=== PATIENT | male | born 1980 | race Two or more races ===

== ENCOUNTER 2024-10-21 11:38 | Emergency (ER) | payer SELFPAY ==
[2024-10-21] VITALS (16 sets, daily range): BP systolic 137–166; BP diastolic 92–110; PULSE 69–97; RESP 14–24; TEMP 35.8–37; O2SAT 90–98; BMI 36.9
--- NOTE | 2024-10-21 | XR_ITS ---
Examinations: MRI Brain without intravenous contrast. MRA brain without intravenous contrast. MRA carotids without intravenous contrast 3-D vascular reconstructions Date and time of exam: October 21, 2024 at 1445 hours INDICATIONS: Onset dizziness weakness headaches beginning yesterday at 2:00 PM Technique: Multiple axial and sagittal images of the brain have been obtained MRA brain carotid images without contrast obtained, including 3-D postprocessing, vascular maximum intensity projection images Findings: Sell[place] is not enlarged. The optic chiasm and infundibular stalk are not remarkable. Prepontine and interpeduncular cisterns are not enlarged. No localized enlargement of the medulla or hiram. Fourth ventricle and cerebellar tonsils normal in position. Subacute hemorrhage is not seen. Fourth ventricle is midline. Mass in the cerebellopontine angle region is not evident. 7th and 8th nerve complexes exhibits symmetry. Globes are symmetrical with no retro-orbital mass. Increased white matter signal not seen Diffusion-weighted images demonstrate no focus of restricted diffusion Mass-effect upon the ventricular system is not identified. MRA carotid images no significant stenoses. MRA brain images no large vessel occlusions Impression: Negative for acute hemorrhage mass effect or midline shift No acute infarct No MR findings diagnostic for demyelinating disease
--- NOTE | 2024-10-21 11:52 | EDRME_ITS ---
Rapid Medical Screening Exam [facility] Arrival date/time: 10/21/24 11:38 44-year-old male with no known medical history presents to the emergency room with a chief complaint of slurred speech, generalized weakness, dizziness, and a headache. Patient states all of symptoms began yesterday at 2 PM after he got out of work. Patient states his symptoms have not gotten better so he decided to come into the emergency room. I have greeted and performed a focused initial assessment of this patient. A comprehensive ED assessment and evaluation of the patient, analysis of all test results, and completion of the medical decision making process will be conducted by additional ED providers. Chief Complaint: Dizziness Vital signs: Vital Signs Temperature 98.4 F 10/21/24 11:44 Pulse Rate 89 10/21/24 11:44 Respiratory Rate 19 10/21/24 11:44 Blood Pressure 149/101 H 10/21/24 11:44 Pulse Oximetry (%) 95 10/21/24 11:44 Oxygen Delivery Method Room Air 10/21/24 11:44 Vital signs reviewed by provider: Yes
--- NOTE | 2024-10-21 11:52 | XR_ITS ---
Examination: CT brain head without contrast. 2-D sagittal coronal reconstructions Date and time of exam:October 21, 2024 1227 hours INDICATIONS: Onset of vertigo today CTDI: vol (mGy):57.2 DLP: (mGycm):1209 Technique: Multiple CT axial sections of the brain have been obtained, 5 mm slice thickness. Contrast has not been administered. 2-D sagittal, coronal reconstructions have been obtained Low dose protocols were performed. One or more of the following dose reduction techniques were used; automated exposure control, adjustment of the mA and/or KV according to patient size, use of iterative reconstruction technique. Findings: No significant ventricular enlargement. Intra-axial or extra-axial hemorrhage density is not seen. No mass effect or midline shift Basal cisterns are not remarkable. Fourth ventricle is midline. Cranial vault intact. Impression: Negative for acute hemorrhage, mass effect or midline shift If symptoms persist,, as clinically warranted, consider brain MRI follow-up, stroke protocol
--- NOTE | 2024-10-21 11:52 | EKG_ITS ---
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
[2024-10-21 12:16] LABS: Basophils # (Auto) 0.0 Thou/mm3 (0.0-0.2); Basophils % (Auto) 0 % (0-2.5); Eosinophils # (Auto) 0.0 Thou/mm3 (0.0-0.5); Eosinophils % (Auto) 0 % (0-10); Hematocrit 47.8 % (41.0-53.0); Hemoglobin 15.8 g/dL (13.5-16.0); Immature Granulocytes Auto 0.05 Thou/mm3 (0.00-0.00); Lymphocytes # (Auto) 2.5 Thou/mm3 (1.0-4.8); Lymphocytes % (Auto) 24 % (10-50); Mean Corpuscular HGB Conc 33.1 g/dl (31.0-37.0); Mean Corpuscular Hemoglobin 29.2 pg (25.0-35.0); Mean Corpuscular Volume 88 fL (80-100); Monocytes # (Auto) 0.7 Thou/mm3 (0.0-0.8); Monocytes % (Auto) 7 % (0-12); Neutrophils # (Auto) 7.3 Thou/mm3 (1.8-7.7); Neutrophils % (Auto) 68 % (37-80); Nucleated Red Blood Cell # 0.00 Thou/mm3 (0.00-0.00); Nucleated Red Blood Cell % 0 /100 WBC (0); Platelet Count 252 Thou/mm3 (140-440); RDW Standard Deviation 44.9 fL (35.1-43.9); Red Blood Count 5.41 Miln/mm3 (4.50-5.90); White Blood Count 10.7 Thou/mm3 (3.8-10.6)
[2024-10-21 12:41] LABS: B-Type Natriuretic Peptide < 20 pg/mL (0-100)
[2024-10-21 12:44] LABS: Alanine Aminotransferase 44 U/L (10-49); Albumin, Serum 4.6 gm/dL (3.5-5.0); Albumin/Globulin Ratio 1.8 (1.2-2.2); Alkaline Phosphatase 95 U/L (46-116); Anion Gap 10 (7-16); Aspartate Amino Transferase 38 U/L (0-34); BUN/Creatinine Ratio 9 Ratio (12-20); Bilirubin,Total 0.9 mg/dL (0.3-1.2); Blood Urea Nitrogen 11 mg/dL (9-23); Calcium 9.4 mg/dL (8.3-10.6); Calcium (Corrected) 9.4 mg/dL (8.5-10.1); Carbon Dioxide 29.1 mMol/L (20.0-31.0); Chloride 105 mMol/L (98-107); Creatinine (Component) 1.2 mg/dL (0.6-1.3); Estimated Creatinine Clearance 98.5 mL/min (>60); Globulin 2.6 gm/dL (2.3-3.5); Glucose 103 mg/dL (74-106); Osmolality,Calculated 286 (275-295); Potassium 3.6 mMol/L (3.4-5.1); Sodium 144 mMol/L (136-145); Total Protein 7.2 gm/dL (5.7-8.2); Troponin I < 0.020 ng/mL (0.0-0.045); eGFR > 60 See Note
--- NOTE | 2024-10-21 13:07 | EDNOTE_ITS ---
<Statement entered by Anali Lim MD - 10/21/24 17:22> As co-signing physician, I was present and available for consult prn. I concur with the plan and care as documented by the midlevel provider. ED General RME/HPI General Chief complaint: Dizziness Stated complaint: DIZZY, HEADACHE, SPEECH NOT NORMAL, LKW 2PM YEST. Arrival date/time: 10/21/24 11:38 RME / HPI RME / HPI narrative: 10/21/24 11:38 44-year-old male with no known medical history presents to the emergency room with a chief complaint of slurred speech, generalized weakness, dizziness, and a headache. Patient states all of symptoms began yesterday at 2 PM after he got out of work. Patient states his symptoms have not gotten better so he decided to come into the emergency room. I have greeted and performed a focused initial assessment of this patient. A comprehensive ED assessment and evaluation of the patient, analysis of all test results, and completion of the medical decision making process will be conducted by additional ED providers. 44-year-old male with no relevant past medical history came into the ED with chief complaints of dizziness, slurred speech, confusion, and weakness since yesterday around 2 PM. Patient mentioned that around 2 PM at work he was at his office when he started feeling dizzy and found the will to get up and move to his vehicle as he stated that he was feeling weak, but he turned his car on and next thing he remembers is that he woke up still in his car around 12 midnight. At this time he went home and his told him that he had some slurred speech and that he was not making sense. Patient decided to come into the ED today as he was also having a headache. Otherwise had no other complaints including nausea, vomiting, chest pain, abdominal pain, diarrhea, dysuria, or changes in b owel movement. Denies smoking, drugs, admits social drinking Related Data Allergies Allergy/AdvReac Type Severity Reaction Status Date / Time No Known Allergies Allergy Verified 10/21/24 12:53 Review of Systems Review of Systems Systems Reviewed: All systems reviewed, normal except as documented Past Medical History Past Medical History Comments PMH COMMENT: No relevant PMH Denies smoking, drugs, admits social drinking NKDA ED Exam Narrative Physical exam: Gen: A&O X 3, NAD HEENT: NCAT, EOMI, Pupils reactive JANNA, not icteric. External ears normal. No rhinorrhea. Moist mucous membranes. Horizontal Nystagmus present Neck: Supple, full range of motion, no observable masses, No meningeal sign. Lungs: No Respiratory distress, clear bilateral. CV: RRR, no murmurs. Abdomen: Soft, nondistended, No rebound tenderness. MSK: No joint swelling, no redness, peripheral pulses presents, lumbar with no edema. Skin: No rashes, petechiae, lesions. Neuro: No focal neurological deficits appreciated, sensory and motor intact, no facial assymetry, Romberg negative, No dysmetria, no slurred speech, strength 5/5 JANNA UE and LE Psych: Cooperative, appropriate mood and effect. 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 START 00 Care 10/21/24 13:25 Active Continuous Pulse Oximetry NOW Care 10/21/24 13:25 Completed EKG (ED ONLY) *Do not use* NOW Care 10/21/24 11:52 Completed IV [Insert IV] NOW Care 10/21/24 13:26 Active MRI Screening NOW Care 10/21/24 13:[address] head/brain wo con Stat Exams 10/21/24 11:52 Completed EKG (ED Only) Stat Exams 10/21/24 11:52 Draft MR stroke protocol brain wo con with MRA head and neck Exams 10/21/24 Completed Stat BNP [B-Type Natriuretic Peptide] Stat Lab 10/21/24 11:59 Completed CBC Stat Lab 10/21/24 11:59 Completed Comprehensive Metabolic Panel Stat Lab 10/21/24 11:59 Completed Drug Screen,Urine Stat Lab 10/21/24 14:00 Completed Troponin I Stat Lab 10/21/24 11:59 Completed Urinalysis Stat Lab 10/21/24 14:00 Completed Urine Culture Stat Lab 10/21/24 14:00 Received Labetalol IV [Trandate IV] Med 10/21/24 13:33 Discontinued 5 mg IVP X1 ONE Vital Signs Vital signs: Vital Signs Temperature 98.4 F 10/21/24 11:44 Pulse Rate 89 10/21/24 11:44 Respiratory Rate 19 10/21/24 11:44 Blood Pressure 149/101 H 10/21/24 11:44 Pulse Oximetry (%) 95 10/21/24 11:44 Oxygen Delivery Method Room Air 10/21/24 11:44 Discharge Plan Plan Patient Disposition: HOME (Self Care) Prescriptions/Referrals Referrals: No Primary/Family,Physician [Primary Care Provider] - In 1 week Problem List Clinical Impression: Headache, Benign paroxysmal positional vertigo, Elevated blood pressure reading Patient/Caregiver Discharge Instructions Other Activity Instructions:: Follow-up with primary care physician within 5 days Follow-up with PCP for blood pressure as it was elevated during ER visit. Brain MRI and MRA today was negative for any acute stroke. Recommend outpatient follow-up with neurology if symptoms persist or worsen Come back to the ER if symptoms such as dizziness, headaches, slurred speech, weakness, or other worsening symptoms develop. Education Materials: Controlling High Blood Pressure, Self-Care for Headaches, BPPV Print Language: Setswana Stand Alone Forms: [employer] Award Info., Patient Portal Info Letter MDM Narrative [facility] hospital course: 13:10: Patient greeted and assessed by myself. Performed an extensive neurological exam and there were no focal neurological deficits and Romberg was negative. Horizontal nystagmus only present. 13:14: Ordered MRI/MRA to rule out possible stroke, but less likely given patient's symptoms do not correlate to 1 anatomical location in the brain. 13:15: Patient reassessed and [place]-Hallpike maneuver was done, and patient stated he felt something different. 14:35: UA and Utox negative. Pending MRI/MRA 16:15: Reviewed MRI/MRA which was negative for any acute infarct, hemorrhage, mass or demyelinating disease. 16:20: Spoke with patient about findings. At this time is stable enough to be discharged home. Agrees with plan. Case disclosed with Attending Dr. Carina Rivera PGY2 Disclaimer: Even though this this note was dictated by speech recognition and even though it was carefully revised there may still be minor errors in knitting supervisor due to voice recognition software. Medication Administration(s) Medication Administration History Discontinued Medications Labetalol HCl (Labetalol Inj 5 Mg/Ml Vial 20 Ml) 5 mg IVP X1 ONE Stop: 10/21/24 13:34 Last Admin: 10/21/24 13:53 Dose: 5 mg Documented By: KVNG
[2024-10-21] MEDS: LABETALOL INJ 5 MG/ML VIAL 20 ML IVP (13:53)
[2024-10-21 14:05] LABS: Collection Type, Urine Clean Catch; Squamous Epithelial Cell,Urine 0 /hpf (0-5)
[2024-10-21 14:18] LABS: Bilirubin,Urine Negative (Negative); Blood,Urine Negative (Negative); Clarity,Urine Clear (Clear/Hazy); Color,Urine Lt-Yellow (Lt Yel-Yel); Glucose, Urine Negative (Negative); Ketones,Urine Negative (Negative); Leukocyte Esterase,Urine Negative (Negative); Nitrite,Urine Negative (Negative); PH,Urine 6.5 (5.0-7.0); Protein,Urine Negative (Neg - Trace); RBC,Urine < 1 /hpf (0-3); Specific Gravity,Urine 1.009 (1.001-1.035); Urobilinogen,Urine Negative mg/dL (0.0-1.0); WBC,Urine < 1 /hpf (0-5)
[2024-10-21 14:29] LABS: Amphetamine/Methamp Scrn,U Negative (Negative); Barbiturate Screen,Urine Negative (Negative); Benzodiazepines Screen,Urine Negative (Negative); Benzoylecgonine Screen, Ur Negative (Negative); Fentanyl Screen,Urine Negative (Negative); Opiate Screen,Urine Negative (Negative); THC Screen,Urine Negative (Negative)
== END 2024-10-21 16:41 | disposition home or self-care (01) ==
PROVIDERS: Nurse Practitioner Family; Emergency Provider Emergency Medicine
DX: H81.10 Benign paroxysmal vertigo, unspecified ear (principal); R03.0 Elevated blood-pressure reading, without diagnosis of hypertension; R51.9 Headache, unspecified; R53.1 Weakness; R94.31 Abnormal electrocardiogram [ECG] [EKG]
CPT/HCPCS: 36415; 70450; 70544; 80053; 80307; 81001; 83880; 84484; 85025; 87086; 93005; 96374; 99284; J3490; J1920